=== PATIENT | male | born 2000 | race African-American/Black ===

== ENCOUNTER 2021-12-08 18:27 | Emergency (ER) | payer MEDICAID ==
[~2021-12-08] VITALS: Ht 177.8 cm; Wt 67.0 kg
[2021-12-08] MEDS ORDERED: ONDANSETRON HCL 4MG/2ML INJ IV STA (21:03)
[2021-12-08] MEDS ORDERED: MORPHINE SULFATE 4 MG/ML CPJ (NOT FOR IM USE) IV STA (21:03)
[2021-12-08 21:06] LABS: HEMATOCRIT. 38.8 % (42.0-52.0); HEMOGLOBIN. 13.4 g/dL (14.0-18.0); MEAN CORPUSCULAR HEMOGLOBIN 28.9 pg (28.0-32.0); MEAN PLATELET VOLUME 7.9 fl (7.4-10.4); PLATELET 313 x1000/uL (130-400); RED BLOOD CELL COUNT 4.62 mill/uL (4.7-6.1)
[2021-12-08 21:11] LABS: CHLORIDE 102 mEq/L (98-107)
[2021-12-08] MEDS ORDERED: SODIUM CHLORIDE 0.9% 1,000 ML IV ONE (21:15)
[2021-12-08] MEDS ORDERED: LORAZEPAM 2MG/ML CPJ IV ONE (21:15)
[2021-12-08 21:19] LABS: ETHANOL BLOOD < 10 mg/dL
[2021-12-08 21:25] LABS: CLARITY URINE CLEAR (CLEAR); COLOR URINE YELLOW (YELLOW); KETONES URINE 3+ (NEGATIVE); LEUKOCYTE ESTERASE URINE NEGATIVE (NEGATIVE); NITRITE URINE NEGATIVE (NEGATIVE); OCCULT BLOOD URINE NEGATIVE (NEGATIVE); PH URINE >=9.0 (4.5-8.0); PROTEIN URINE 1+ (NEGATIVE)
[2021-12-08 21:35] LABS: PLATELET ESTIMATE NORMAL
[2021-12-08 21:39] LABS: *AMPHETAMINES SCREEN URINE NEGATIVE (NEGATIVE); *BARBITURATES SCREEN URINE NEGATIVE (NEGATIVE); *BENZODIAZEPINES SCREEN URINE NEGATIVE (NEGATIVE); *COCAINE SCREEN URINE NEGATIVE (NEGATIVE); METHADONE URINE SCREEN NEGATIVE (NEGATIVE); OPIATES URINE SCREEN NEGATIVE (NEGATIVE)
[2021-12-08 21:40] LABS: CANNABINOID URINE SCREEN PRESUMTIVE POSITIVE (NEGATIVE); PHENCYCLIDINE URINE SCREEN NEGATIVE (NEGATIVE)
[2021-12-09] MEDS ORDERED: ONDA4TAB11 PO (00:52)
[2021-12-09] MEDS ORDERED: OMEP20CA14 MT (00:52)
[2021-12-09 01:14] VITALS: BP 110/62
== END 2021-12-09 01:42 | disposition home or self-care (01) ==
LOC: ER 18:27
DX: R10.9 Unspecified abdominal pain (principal); R11.10 Vomiting, unspecified; F12.10 Cannabis abuse, uncomplicated
CPT/HCPCS: 36415; 74176; 80053; 80305; 80320; 81003; 83690; 85025; 96361; 96374; 96375; 99291; J2060; J2270; J2405; J7030; G0480

== ENCOUNTER 2022-04-06 15:50 | Emergency (ER) | payer MEDICAID ==
[~2022-04-06] VITALS: Ht 165.1 cm; Wt 76.0 kg
[~2022-04-06 15:50] MED LIST: OMEP20CA14 MT; ONDA4TAB11 PO
[2022-04-06] MEDS ORDERED: MAGNESIUM/ALUMINUM HYDROXIDE/SIMETHICONE 30ML UDC PO STA (16:56)
[2022-04-06] MEDS ORDERED: PANTOPRAZOLE SODIUM 40 MG/VIAL IV STA (16:56)
[2022-04-06] MEDS ORDERED: VISCOUS LIDOCAINE 2% 15 ML UDC PO STA (16:56)
[2022-04-06] MEDS ORDERED: SODIUM CHLORIDE 0.9% 1,000 ML IV ONE (17:00)
[2022-04-06] MEDS ORDERED: KETOROLAC 15MG/ML VIAL IV NR (17:15)
[2022-04-06 17:29] LABS: CLARITY URINE CLEAR (CLEAR); COLOR URINE YELLOW (YELLOW); KETONES URINE NEGATIVE (NEGATIVE); LEUKOCYTE ESTERASE URINE NEGATIVE (NEGATIVE); NITRITE URINE NEGATIVE (NEGATIVE); OCCULT BLOOD URINE NEGATIVE (NEGATIVE); PH URINE >=9.0 (4.5-8.0); PROTEIN URINE 1+ (NEGATIVE); SPECIFIC GRAVITY URINE 1.022 (1.005-1.030); UROBILINOGEN URINE 0.2 E.U./dL (0.2-1.0)
[2022-04-06 17:37] LABS: CHLORIDE 102 mEq/L (98-107)
[2022-04-06 17:41] LABS: *AMPHETAMINES SCREEN URINE NEGATIVE (NEGATIVE); *BARBITURATES SCREEN URINE NEGATIVE (NEGATIVE); *BENZODIAZEPINES SCREEN URINE NEGATIVE (NEGATIVE); *COCAINE SCREEN URINE NEGATIVE (NEGATIVE); CANNABINOID URINE SCREEN PRESUMTIVE POSITIVE (NEGATIVE); HEMATOCRIT. 40.7 % (42.0-52.0); HEMOGLOBIN. 13.4 g/dL (14.0-18.0); MEAN CORPUSCULAR HEMOGLOBIN 28.5 pg (28.0-32.0); MEAN CORPUSCULAR VOLUME 86.9 fL (80.0-94.0); MEAN PLATELET VOLUME 8.3 fl (7.4-10.4); METHADONE URINE SCREEN NEGATIVE (NEGATIVE); OPIATES URINE SCREEN NEGATIVE (NEGATIVE); PHENCYCLIDINE URINE SCREEN NEGATIVE (NEGATIVE); PLATELET 308 x1000/uL (130-400); RED BLOOD CELL COUNT 4.69 mill/uL (4.7-6.1); RED CELL DISTRIBUTION WIDTH 13.1 % (11.6-14.6)
[2022-04-06 17:44] LABS: ETHANOL BLOOD < 10 mg/dL
[2022-04-06] MEDS ORDERED: MORPHINE SULFATE 4 MG/ML CPJ (NOT FOR IM USE) IV NR (18:30)
[2022-04-06] MEDS ORDERED: ONDA4TAB50 MT (20:00)
[2022-04-06] MEDS ORDERED: DICY10CA88 MT (20:00)
[2022-04-06] MEDS ORDERED: IBUP-2029 MT (20:00)
[2022-04-06 20:28] VITALS: BP 115/80
[2022-04-06 20:46] LABS: PLATELET ESTIMATE NORMAL
== END 2022-04-06 20:29 | disposition home or self-care (01) ==
LOC: ER 15:50
DX: R10.9 Unspecified abdominal pain (principal); D72.829 Elevated white blood cell count, unspecified
CPT/HCPCS: 36415; 74176; 76705; 80053; 80305; 80320; 81003; 83690; 85025; 96361; 96374; 96375; 99284; C9113; J1885; J2270; J7030; G0480